=== PATIENT | female | born 1955 | race African-American/Black ===

== ENCOUNTER 2018-07-31 11:22 | Inpatient (IN) | payer MEDICAID ==
[~2018-07-31] VITALS: Ht 165.1 cm; Wt 72.6 kg
[2018-07-31] MEDS ORDERED: FUROSEMIDE 40MG/4ML VIAL IV ONE (12:15)
[2018-07-31] MEDS ORDERED: IPRATROPIUM/ALBUTEROL 0.5-3(2.5)MG/3ML NEB HHN ONE (12:15)
[2018-07-31] MEDS ORDERED: LEVOFLOXACIN 500MG PREMIX 100 ML IV ONE (12:15)
[2018-07-31] MEDS ORDERED: METHYLPREDNISOLONE SOD SUCC 125 MG/2 ML VIAL IV ONE (12:15)
[2018-07-31 12:30] LABS: BG BASE EXCESS 7.2 mmol/L (-2.0-2.0); BG CARBOXYHEMOGLOBIN 1.9 % (0.5-1.5); BG DEOXYHEMOGLOBIN 11.6 % (0.0-5.0); BG FRACTION INSPIRED OXYGEN 32; BG HCO3 ACT 35.5 mmol/L (22.0-26.0); BG METHEMOGLOBIN 0.3 % (0.0-1.5); BG OXYGEN SATURATION 88.1 % (92.0-98.5); BG OXYHEMOGLOBIN 86.2 % (94.0-97.0); BG PCO2 69.3 mmHg (35.0-45.0); BG PH 7.327 (7.350-7.450); BG PO2 57.3 mmHg (75.0-100.0); BG SAMPLE SITE RIGHT BRACHIAL; BG TOTAL HEMOGLOBIN 12.7 g/dL (12.0-18.0); BG VENT MODE NASAL CANNULA
[2018-07-31 12:42] LABS: BASOPHILS % 0.2 % (0.0-2.0); EOSINOPHILS % 0.1 % (0.0-5.0); HEMOGLOBIN. 13.2 g/dL (12.0-16.0); LYMPHOCYTES % 10.7 % (20.0-50.0); MEAN CORPUSCULAR HEMOGLOBIN 22.4 pg (28.0-32.0); MEAN CORPUSCULAR VOLUME 72.8 fL (81.0-99.0); MEAN PLATELET VOLUME 8.6 fl (7.4-10.4); MONOCYTES % 8.1 % (2.0-8.0); NEUTROPHILS % 80.9 % (40.0-76.0); PLATELET 395 x1000/uL (130-400)
[2018-07-31 12:45] LABS: CHLORIDE 102 mEq/L (98-107)
[2018-07-31 12:47] LABS: PARTIAL THROMBOPLASTIN TIME 27.8 sec (23.4-31.0); PROTHROMBIN TIME 10.2 sec (9.6-11.0)
[2018-07-31 12:49] LABS: ETHANOL BLOOD < 10 mg/dL
[2018-07-31 14:20] LABS: CLARITY URINE CLEAR (CLEAR); COLOR URINE YELLOW (YELLOW); KETONES URINE NEGATIVE (NEGATIVE); LEUKOCYTE ESTERASE URINE NEGATIVE (NEGATIVE); NITRITE URINE NEGATIVE (NEGATIVE); OCCULT BLOOD URINE NEGATIVE (NEGATIVE); PROTEIN URINE TRACE (NEGATIVE); SPECIFIC GRAVITY URINE 1.015 (1.005-1.030); UROBILINOGEN URINE 0.2 E.U./dL (0.2-1.0)
[2018-07-31 14:23] LABS: *AMPHETAMINES SCREEN URINE NEGATIVE (NEGATIVE); *BARBITURATES SCREEN URINE NEGATIVE (NEGATIVE); *BENZODIAZEPINES SCREEN URINE NEGATIVE (NEGATIVE)
[2018-07-31 14:24] LABS: *COCAINE SCREEN URINE NEGATIVE (NEGATIVE); CANNABINOID URINE SCREEN NEGATIVE (NEGATIVE); METHADONE URINE SCREEN NEGATIVE (NEGATIVE); OPIATES URINE SCREEN NEGATIVE (NEGATIVE); PHENCYCLIDINE URINE SCREEN NEGATIVE (NEGATIVE)
[2018-07-31 17:00] VITALS: BP 150/95
[2018-07-31] MEDS ORDERED: ACETAMINOPHEN 325MG TABLET PO PRN (17:15)
[2018-07-31] MEDS ORDERED: ONDANSETRON HCL 4MG/2ML INJ IV PRN (17:15)
[2018-07-31] MEDS ORDERED: CLONIDINE 0.1MG TABLET PO PRN (17:15)
[2018-07-31 18:00] VITALS: BP 128/75
[2018-07-31] MEDS: METHYLPREDNISOLONE SOD SUCC 40 MG/ML VIAL IV SCH (18:19)
[2018-07-31] MEDS: ENOXAPARIN 40MG/0.4ML SYR SUBCUT SCH (18:20)
[2018-07-31 20:00] VITALS: BP 113/79
[2018-07-31] MEDS: IPRATROPIUM/ALBUTEROL 0.5-3(2.5)MG/3ML NEB HHN PRN (20:34)
[2018-07-31 22:00] VITALS: BP 105/72
[2018-08-01] VITALS (11 sets, daily range): BP systolic 110–124; BP diastolic 36–88
[2018-08-01] MEDS: IPRATROPIUM/ALBUTEROL 0.5-3(2.5)MG/3ML NEB HHN PRN (01:42)
[2018-08-01] MEDS: METHYLPREDNISOLONE SOD SUCC 40 MG/ML VIAL IV SCH ×2 (02:24→10:54)
[2018-08-01 06:12] LABS: HEMATOCRIT 35.8 % (36.0-48.0); HEMOGLOBIN 11.3 g/dL (12.0-16.0); MEAN CORPUSCULAR HEMOGLOBIN 22.8 pg (28.0-32.0); MEAN CORPUSCULAR VOLUME 72.2 fL (81.0-99.0); PLATELET 358 x1000/uL (130-400); RED BLOOD CELL COUNT 4.96 mill/uL (4.2-5.4); RED CELL DISTRIBUTION WIDTH 16.7 % (11.6-14.6)
[2018-08-01 06:37] LABS: CHLORIDE 104 mEq/L (98-107)
[2018-08-01 08:46] LABS: BG BASE EXCESS 6.3 mmol/L (-2.0-2.0); BG CARBOXYHEMOGLOBIN 1.6 % (0.5-1.5); BG FRACTION INSPIRED OXYGEN 28; BG HCO3 ACT 33.2 mmol/L (22.0-26.0); BG METHEMOGLOBIN 0.3 % (0.0-1.5); BG OXYGEN SATURATION 86.7 % (92.0-98.5); BG OXYHEMOGLOBIN 85.1 % (94.0-97.0); BG PCO2 59.5 mmHg (35.0-45.0); BG PH 7.364 (7.350-7.450); BG PO2 55.4 mmHg (75.0-100.0); BG SAMPLE SITE RIGHT RADIAL; BG TOTAL HEMOGLOBIN 11.6 g/dL (12.0-18.0); BG VENT MODE MASK - TRACH
[2018-08-01] MEDS: LEVOFLOXACIN 500MG PREMIX 100 ML IV SCH (11:51)
[2018-08-01] MEDS ORDERED: FUROSEMIDE 40MG/4ML VIAL IVP SCH (13:00)
[2018-08-01] MEDS ORDERED: IPRATROPIUM/ALBUTEROL 0.5-3(2.5)MG/3ML NEB HHN PRN ×2 (13:45)
[2018-08-01] MEDS: ASPIRIN 81MG EC TABLET PO SCH (15:09)
[2018-08-01] MEDS: ACETAMINOPHEN WITH CODEINE 300/30MG TABLET PO PRN ×2 (15:10→20:02)
[2018-08-01] MEDS: ENOXAPARIN 40MG/0.4ML SYR SUBCUT SCH (18:09)
[2018-08-01] MEDS: BUDESONIDE 0.5MG/2ML NEB HHN SCH (21:09)
[2018-08-01] MEDS: IPRATROPIUM/ALBUTEROL 0.5-3(2.5)MG/3ML NEB HHN SCH (21:09)
[2018-08-01] MEDS ORDERED: LACTULOSE 20G/30ML UDC PO PRN (21:45)
[2018-08-01] MEDS: DOCUSATE SODIUM 100MG CAPSULE PO SCH (22:17)
[2018-08-01] MEDS ORDERED: MAGNESIUM HYDROXIDE 400MG/5ML 30ML UDC PO PRN (22:45)
[2018-08-02] VITALS (8 sets, daily range): BP systolic 110–124; BP diastolic 62–88
[2018-08-02] MEDS: IPRATROPIUM/ALBUTEROL 0.5-3(2.5)MG/3ML NEB HHN SCH ×4 (01:08→21:48)
[2018-08-02] MEDS: BUDESONIDE 0.5MG/2ML NEB HHN SCH ×2 (08:15→21:47)
[2018-08-02] MEDS: DOCUSATE SODIUM 100MG CAPSULE PO SCH (09:00)
[2018-08-02] MEDS: ASPIRIN 81MG EC TABLET PO SCH (09:00)
[2018-08-02] MEDS: LEVOFLOXACIN 500MG PREMIX 100 ML IV SCH (12:00)
[2018-08-02] MEDS ORDERED: AMLODIPINE 2.5MG TABLET PO ONE (12:15)
[2018-08-02] MEDS: ENOXAPARIN 40MG/0.4ML SYR SUBCUT SCH (18:48)
[2018-08-02] MEDS: GUAIFENESIN 600MG ER TABLET PO SCH (20:24)
[2018-08-02] MEDS: AMLODIPINE 2.5MG TABLET PO SCH (20:24)
[2018-08-03] VITALS (8 sets, daily range): BP systolic 110–121; BP diastolic 66–81
[2018-08-03] MEDS: ACETAMINOPHEN WITH CODEINE 300/30MG TABLET PO PRN ×3 (01:49→18:19)
[2018-08-03] MEDS: IPRATROPIUM/ALBUTEROL 0.5-3(2.5)MG/3ML NEB HHN SCH ×3 (03:12→20:38)
[2018-08-03 06:31] LABS: BASOPHILS % 0.6 % (0.0-2.0); EOSINOPHILS % 2.6 % (0.0-5.0); HEMATOCRIT. 37.5 % (36.0-48.0); HEMOGLOBIN. 11.6 g/dL (12.0-16.0); LYMPHOCYTES % 41.7 % (20.0-50.0); MEAN CORPUSCULAR HEMOGLOBIN 22.6 pg (28.0-32.0); MEAN CORPUSCULAR VOLUME 73.2 fL (81.0-99.0); MEAN PLATELET VOLUME 8.8 fl (7.4-10.4); MONOCYTES % 12.4 % (2.0-8.0); NEUTROPHILS % 42.7 % (40.0-76.0); PLATELET 369 x1000/uL (130-400); RED BLOOD CELL COUNT 5.12 mill/uL (4.2-5.4); RED CELL DISTRIBUTION WIDTH 16.3 % (11.6-14.6)
[2018-08-03 06:53] LABS: CHLORIDE 97 mEq/L (98-107)
[2018-08-03] MEDS: BUDESONIDE 0.5MG/2ML NEB HHN SCH ×2 (09:05→20:37)
[2018-08-03] MEDS: DOCUSATE SODIUM 100MG CAPSULE PO SCH (09:13)
[2018-08-03] MEDS: ASPIRIN 81MG EC TABLET PO SCH (09:13)
[2018-08-03] MEDS: AMLODIPINE 2.5MG TABLET PO SCH ×2 (09:14→20:21)
[2018-08-03] MEDS: GUAIFENESIN 600MG ER TABLET PO SCH ×2 (09:18→20:21)
[2018-08-03] MEDS: LEVOFLOXACIN 500MG PREMIX 100 ML IV SCH (13:13)
[2018-08-03] MEDS ORDERED: BISACODYL 5MG TABLET PO NR (15:15)
[2018-08-03] MEDS: ENOXAPARIN 40MG/0.4ML SYR SUBCUT SCH (18:20)
[2018-08-04] VITALS: BP 109/76
[2018-08-04] MEDS: IPRATROPIUM/ALBUTEROL 0.5-3(2.5)MG/3ML NEB HHN SCH ×2 (02:00→09:17)
[2018-08-04 04:00] VITALS: BP 124/81
[2018-08-04 07:33] LABS: BASOPHILS % 0.6 % (0.0-2.0); EOSINOPHILS % 4.5 % (0.0-5.0); HEMATOCRIT. 37.6 % (36.0-48.0); LYMPHOCYTES % 39.3 % (20.0-50.0); MEAN CORPUSCULAR HEMOGLOBIN 23.1 pg (28.0-32.0); MEAN CORPUSCULAR VOLUME 72.4 fL (81.0-99.0); MEAN PLATELET VOLUME 8.6 fl (7.4-10.4); MONOCYTES % 14.3 % (2.0-8.0); NEUTROPHILS % 41.3 % (40.0-76.0); PLATELET 361 x1000/uL (130-400); RED BLOOD CELL COUNT 5.19 mill/uL (4.2-5.4); RED CELL DISTRIBUTION WIDTH 16.4 % (11.6-14.6)
[2018-08-04 08:00] VITALS: BP 110/79
[2018-08-04] MEDS: AMLODIPINE 2.5MG TABLET PO SCH (09:00)
[2018-08-04] MEDS: BUDESONIDE 0.5MG/2ML NEB HHN SCH (09:18)
[2018-08-04] MEDS: ASPIRIN 81MG EC TABLET PO SCH (09:19)
[2018-08-04] MEDS: DOCUSATE SODIUM 100MG CAPSULE PO SCH (09:19)
[2018-08-04] MEDS: GUAIFENESIN 600MG ER TABLET PO SCH (09:19)
[2018-08-04 09:29] LABS: CHLORIDE 99 mEq/L (98-107)
[2018-08-04] MEDS: ACETAMINOPHEN WITH CODEINE 300/30MG TABLET PO PRN (09:57)
[2018-08-04] MEDS ORDERED: LEVOFLOXACIN 500MG TABLET PO SCH (11:00)
[2018-08-04 11:19] VITALS: BP 110/79
[2018-08-04 12:00] VITALS: BP 112/81
== END 2018-08-04 13:30 | disposition home or self-care (01) | DRG 133 ==
LOC: ER 12:31 → EDBD 15:14 → 5EST 15:14 → ENRESERV 15:23 → 5WST 08-03 11:54
PROVIDERS: ADMIT Hospitalist; ATTEND Hospitalist
DX: J96.21 Acute and chronic respiratory failure with hypoxia (principal); E87.2 Acidosis; I27.20 Pulmonary hypertension, unspecified; I11.0 Hypertensive heart disease with heart failure; Z93.0 Tracheostomy status; M33.20 Polymyositis, organ involvement unspecified; I50.82 Biventricular heart failure; R65.10 Systemic inflammatory response syndrome (SIRS) of non-infectious origin without acute organ dysfunction; J96.22 Acute and chronic respiratory failure with hypercapnia; S22.32XA Fracture of one rib, left side, initial encounter for closed fracture; I25.10 Atherosclerotic heart disease of native coronary artery without angina pectoris; E11.9 Type 2 diabetes mellitus without complications; E87.6 Hypokalemia; I45.10 Unspecified right bundle-branch block; K59.00 Constipation, unspecified; M71.21 Synovial cyst of popliteal space [Baker], right knee; X58.XXXA Exposure to other specified factors, initial encounter; Y93.89 Activity, other specified; Y92.89 Other specified places as the place of occurrence of the external cause; Z79.899 Other long term (current) drug therapy; Z87.891 Personal history of nicotine dependence; Y99.8 Other external cause status; Z82.49 Family history of ischemic heart disease and other diseases of the circulatory system
CPT/HCPCS: 36415; 36600; 71045; 80048; 80305; 80320; 82375; 82805; 83605; 83880; 84484; 85027; 93005; 93306; 93970; 94640; 94660; 96365; 96375; 97162; 99285; J1650; J1940; J1956; J2405; J2920; J2930; J7050; J7620; J7626; A4315; G0480